=== PATIENT | male | born 1995 | race Caucasian/White ===

== ENCOUNTER 2022-02-27 12:49 | Emergency (ER) | payer OTHER ==
[~2022-02-27] VITALS: Ht 167.6 cm; Wt 79.9 kg
[2022-02-27] MEDS ORDERED: KETOROLAC TROMETHAMINE 15 MG INJ IM ONE (13:30)
[2022-02-27] MEDS ORDERED: KETOROLAC TROMETHAMINE 15 MG INJ ONE (13:43)
[2022-02-27] MEDS ORDERED: IBUP-1955 PO (13:49)
--- NOTE | 2022-02-27 13:51 | NUR ---
Patient laying supine in bed. Headache of 11/03 reported, with some facial grimacing. Bed in lowest position. Safety measures are in place. Addendum: 02/27/22 at 1358 by SOM Patient discharged. Discharge packet given and explained.
== END 2022-02-27 14:19 | disposition home or self-care (01) ==
LOC: ER 12:53
DX: G44.89 Other headache syndrome (principal); J06.9 Acute upper respiratory infection, unspecified; B97.89 Other viral agents as the cause of diseases classified elsewhere; Z20.822 Contact with and (suspected) exposure to COVID-19; Z83.3 Family history of diabetes mellitus; Z82.49 Family history of ischemic heart disease and other diseases of the circulatory system
CPT/HCPCS: 99283; 36415; 96372; U0003; C9803; J1885; A4663